=== PATIENT | female | born 1970 | race Caucasian/White ===

== ENCOUNTER → 2016-05-01 | Day surgery (SDC) | payer OTHER, MEDICARE ==
[~2016-05-01] VITALS: Ht 152.4 cm; Wt 63.5 kg
[~2016-05-01] MED LIST: ADVAIR 250-501 EACH INH; ALPRAZOLAM0.5 M4 PO; ATENOLOL50 M1 PO; FLEXERIL10 MG PO; FLUOXETINE HCL40 M1 PO; GABAPENTIN600 M1 PO; MOBIC15 MG PO; NASONEX17 GM; OMEPRAZOLE20 M2 PO; OMEPRAZOLE40 M1 PO; PERCOCET 5-3251 EACH PO; PROAIR HFA8.5 GM INH; PROZAC20 M2 PO; SYNTHROID25 MCG PO; TIZANIDINE HCL4 M2 PO
--- NOTE | 2016-05-01 11:03 | Operative Report ---
Operative/Inv Procedure Report Surgery Date: 05/01/16 Name of Procedure: Diagnostic laparoscopy peritoneal washings Pre-Operative Diagnosis: Pelvic pain Post-Operative Diagnosis: Same and adenomyosis of the uterus Estimated Blood Loss: less than 50ml Surgeon/Moving Picture Operator: HOME LOZANO,YE Boswell Anesthesia: general endotracheal tube, block Operative/Procedure Note Note: Procedure note patient was taken the operating room placed prone position after adequate anesthesia patient placed in dorsolithotomy position vagina prepped draped fashion bladder was catheterized examination anesthesia performed CO2 tenaculum placed on the Intralipid cervix gentle downward traction at this point on surgeon regowned and gloved at the level the umbilicus a stab incision was made to allow for the entry of Veress needle the abdomen was insufflated approximately 4 L of CO2 to liver edge dullness which point the Veress needle was removed a 10 mm trocar was inserted atraumatically at the umbilicus sheath remained in place through that sheath a laparoscope was placed under direct visualization a 5 mm trocar was placed 2 fingerbreadths of symptoms pubis in the midline through that a port was placed to allow fluid into the abdomen fluid was sent for peritoneal washings oral instruments removed from the abdomen as well as maximal CO2 the incision at the umbilicus oversewn using 0 skin was reapproximated 30 both incisions Marcaine was injected underneath both incisions sterile dressings were applied to both incisions patient tolerated this well advancements removed from the vagina the patient was returned spine position she was extubated awakened from anesthesia and transferred recovery room awake and alert with counts correct Findings: Uterus consistent with adenomyosis normal ovaries and tubes bilaterally otherwise normal anatomy
== END ==
LOC: STS 01:41
DX: N80.0 Endometriosis of uterus (principal); R10.2 Pelvic and perineal pain; I10 Essential (primary) hypertension; M79.7 Fibromyalgia; G62.9 Polyneuropathy, unspecified
CPT/HCPCS: 88305; J0131; J2250

== ENCOUNTER 2016-06-18 23:13 | Inpatient (IN) | payer OTHER, MEDICARE ==
[~2016-06-18] VITALS: Ht 152.4 cm; Wt 65.8 kg
[~2016-06-18 23:13] MED LIST changes: -PERCOCET 5-3251 EACH PO
[2016-06-19] VITALS (10 sets, daily range): BP systolic 120–160; BP diastolic 80–100
--- NOTE | 2016-06-19 09:57 | Operative Report ---
Operative/Inv Procedure Report Surgery Date: 06/19/16 Name of Procedure: Total abdominal hysterectomy bilateral salpingo-oophorectomy placement of stents removal of stents Pre-Operative Diagnosis: Pelvic pain Post-Operative Diagnosis: Same Estimated Blood Loss: 500 Surgeon/Chocolate Molder: HOME LOZANO,YE Boswell and Dr. Louis Leigh Anesthesia: general endotracheal tube, block Operative/Procedure Note Note: Regional patient was taken the operating room placed prone position after adequate anesthesia patient placed in dorsolithotomy position the vagina was prepped draped so fashion stents were placed by Dr. Mook Ibarra will dictate that part case patient was returned spine position through a Pfannenstiel skin incision skin was cut carried down to rectus fascia which was cut in curvilinear fashion direction peritoneal cavity was entered high into the abdomen at this point the eyes Martin O'Kelton was placed in usual fashion round ligament on the right was identified suture-ligated 0 the round ligament left was identified suture-ligated 0 I the bladder flap was developed sharply quickly cervical branches uterine artery clamped and cut to level of the external os the specimen was clamped with Arenas ducts and removed with Cely's the cuff was oversewn running locking suture of 0 was indicated interrupted [id number]'s at the uterosacrals for hemostasis at this point the right ovary was picked up clamped using Arenas ducts 2 oversewn. T the right ovary and tube were removed the left tube was picked up with Burson clamped with Arenas ducts 2 and the left ovary and tube were removed the pedicle was oversewn 4 using 0 Vicryl hemostasis was apparent the abdomen was irrigated close amounts once until clear the on Nancy was applied to the cervical cuff after hemostasis was apparent all lap pads rings were removed from the abdomen counts correct peritoneum was reapproximated 0 fascia was reapproximated in 2 continuous sutures of running lock subcutaneous tenderness tissues Bovie quite a skin was reprocessed made nichole at the end the case counts correct the urine was clear the stents removed bilaterally tip intact once the vagina had been irrigated and found to be hemostatic the patient was extubated and transferred recovery room awake and alert Findings: Atrophic uterus atrophic ovaries otherwise normal anatomy
--- NOTE | 2016-06-19 13:00 | NUR ---
PT ADMITTED FROM PACU S/P ROCK, PT DROWSY, AROUSABLE, C/O ABD PAIN 09/27, PT REMINDED TO USE DILAUDID FACE WORKER, CRISTINA CATH IN PLACE, IVF INFUSING.ABD DSG CDI, ABD BINDER IN PLACE.PT ORIENTED TO ROOM, CALL LIGHT AND PLAN OF CARE, PT VERBALIZES UNDERSTANDING.
[2016-06-19 19:49] LABS: ABSOLUTE BASOPHIL COUNT 0 /CUMM (0.0-0.2); ABSOLUTE EOSINOPHIL COUNT 0 /CUMM (0.0-0.7); ABSOLUTE GRANULOCYTE CT 9.5 /CUMM (1.4-6.5); ABSOLUTE LYMPH COUNT 0.3 /CUMM (1.2-3.4); ABSOLUTE MONOCYTE COUNT 0.1 /CUMM (0.10-0.60); BASOPHIL % 0 % (0.0-2.0); EOSINOPHIL % 0 % (0-5); HEMATOCRIT 33.1 % (37-47); MEAN CORPUSCULAR VOLUME 87.9 FL (81.0-99.0); MEAN PLATELET VOLUME 7.7 FL (7.4-10.4); PLATELET COUNT 315 /CUMM (130-400); RBC DISTRIBUTION WIDTH 13.8 % (11.5-14.5); RED BLOOD CELL CT 3.77 /CUMM (4.20-5.40)
[2016-06-20] VITALS (9 sets, daily range): BP systolic 98–144; BP diastolic 58–98
[2016-06-20] MEDS ORDERED: PERCOCET 5-3251 EACH PO (09:07)
--- NOTE | 2016-06-20 09:15 | PN- Post Delivery/GYN ---
Subjective Subjective: C/O PAIN +FLATUS Objective Last 24 Hrs of Vital Signs/I&O Vital Signs Date Time Temp Pulse Resp B/P Pulse O2 O2 Flow FiO2 Ox Delivery Rate 03/ 0838 132/76 03/03 0736 98.8 61 18 132/76 98 Nasal Cannula 03/03 0600 98.1 61 18 138/76 03/03 0400 98.4 69 18 138/88 03/03 0400 98.4 69 18 138/88 97 03/03 0200 98.4 71 18 144/98 03/03 0200 98.4 71 18 144/78 98 Nasal Cannula 03/03 0000 98.1 60 18 130/80 03/03 0000 98 Nasal 1.0L Cannula 03/ 2310 98.1 60 18 130/80 99 Nasal Cannula 03/ 2210 96.8 62 18 140/80 03/02 2135 96.8 62 18 140/80 98 Nasal Cannula 03/ 1945 98.4 55 18 146/86 03/02 1904 98.4 55 18 146/86 99 Nasal 3.0L Cannula 03/ 1745 97.8 66 18 160/100 03/02 1719 97.8 66 18 160/100 99 Nasal 3.0L Cannula 03/ 1600 99 Nasal 3.0L Cannula 03/ 1546 97.8 58 18 140/90 03/02 1506 97.8 58 18 140/90 99 03/02 1318 98 Nasal 3.0L Cannula 03/ 1300 97.6 56 18 120/80 03/02 1300 97.6 56 18 120/80 98 Nasal 3.0L Cannula Intake & Output /03 1600 03/03 0800 03/03 0000 Intake Total 1100 1060 Output Total 400 Balance 1100 660 Intake, IV 1000 1000 Intake, Oral 100 60 Number 0 Bowel Movements Output, Urine 400 Physical Exam: PE PALE WF ABD SOFT DISTENTION EXT -EDEMA-HOMANS Assessment/Plan Assessment/Plan ASSESS S/P ROCK BSO FOR PAIN PLAN ADVANCE DIET ANVANCE AMBULATION
[2016-06-21 00:18] VITALS: BP 98/60
[2016-06-21 07:07] VITALS: BP 98/62
[2016-06-21 09:02] VITALS: BP 102/70
[2016-06-21] MEDS ORDERED: PERCOCET 5-3251 EACH PO (10:56)
--- NOTE | 2016-06-24 12:47 | Operative Report ---
Operative/Inv Procedure Report Surgery Date: 06/19/16 Name of Procedure: cystoscopy: bilateral stent insertion Pre-Operative Diagnosis: fibroids Post-Operative Diagnosis: same Estimated Blood Loss: scant Surgeon/Boot And Saddle Repair Person: md simon. meka-urology Anesthesia: general endotracheal tube Drains: 18 fr lyles Specimens: ucx Complications: none Operative/Procedure Note Note: The patient was taken to the operating room and placed on the OR table in supine position. Timeout was performed, with the patient awake, to confirm identify, planned procedures, anesthesia, antibiotics and other pertinent damien-operative information. After adequate anesthesia, and IV antibiotics, the patient was placed in lithotomy Yellow-fin stirrups. She was then draped and prepped in the usual surgical fashion, including a vaginal prep. A 22 Grenadian cystoscope sheath with a 30 angle lens was inserted into the bladder without significant difficulty. The bladder was thoroughly and systematically examined, and was noted to be free of tumor, free of stone, free of endometriosis. Both ureteral orifices were in their orthotopic positions with clear reflux bilaterally. Under direct visualization the left orifice was intubated with a 5 Grenadian whistle-tip catheter, which was advanced easily into the left kidney pelvis. The right ureteral orifice was intubated with a second 5 Grenadian ureteral whistle tip catheter, and advanced into the right renal pelvis without difficulty. For identification purposes the blue marked stent went into the left kidney and the right ureteral stent was marked red. Urine culture was obtained and sent to pathology. The cystoscope was then removed leaving both stents in proper place. An 18 Grenadian Lyles catheter was inserted draining clear fluid and 10 mL of sterile water was then placed in the balloon. The ends ureteral stents, which protruded externally, were taped to the Lyles catheter in order to secure their position. The individual ureteral stents were then connected to their individual drainage devices. The patient tolerated the procedure well. All sponge needle and instrument count were correct at the end of this procedure. The patient was then placed in supine position with Venodyne's in place. At this point, Dr. Munoz was able to proceed with her patient's surgery. Discharge Disposition: proceed with dr. munoz CC: SIMON LOZANO,MEKA
--- NOTE | 2016-06-26 12:21 | Surgical Discharge Summary ---
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 Home What is Your Primary Language? Lao Review of Systems: -13 point review of systems as stated in the [facility] Hospital Course Course Attending Physician: YE BHAT MD Primary Care Physician: ABIOLA PULIDO MD Hospital Course: She was admitted for a total abdominal hysterectomy and she did well she underwent a total abdominal hysterectomy first postoperative day she tolerated clear liquid diet she tolerated oral pain medication urinating freely without these were Maxwell she was out of bed and second postoperative day patient was discharged home the fine physical exam submitted white female HEENT anicteric lungs clear heart S1-S2 abdomen soft incision clean dry and intact with nichole in place extremities negative edema negative Homans Allergies: Coded Allergies: latex (RASH 05/01/16) prochlorperazine (From COMPAZINE) (ANAPHYLAXIS 05/01/16) Disposition Summary Disposition Principal Diagnosis: Status post total abdominal hysterectomy Additional Diagnosis: Anemia Discharge Disposition: home or self care Discharge Instructions General Discharge Information Code Status: Full Code Patient's Diet: REGULAR Patient's Activity: Pelvic rest no heavy lifting greater than 15 pounds nothing in the vagina for 6 weeks no driving for 2 weeks Follow-Up Instructions/Appts: 1 week in my office to remove nichole Medications at Discharge Discharge Medications: Continue taking these medications: Levothyroxine Sodium (Synthroid) 25 MCG TABLET 1 Tablet ORAL DAILY Comments: Last Taken:NOT GIVEN IN HOSPITAL Time: Atenolol (Atenolol) 50 MG TABLET 1 Tablet ORAL DAILY Comments: Last Taken:06/21/16 Time:0900 Gabapentin (Gabapentin) 600 MG TABLET 1 Tablet ORAL THREE TIMES DAILY Comments: Last Taken:06/21/16 Time:0600 Fluticasone/Salmeterol (Advair 250-50 Diskus) (Unknown Strength) BLST.W.DEV Unknown Dose Inhale through mouth TWICE DAILY Comments: Last Taken:NOT GIVEN IN HOSPITAL Time: Albuterol Sulfate (Proair Hfa) 90 MCG HFA.AER.AD 1-2 Puff Inhale through mouth As Directed as needed for RESPIRATORY Comments: Last Taken:NOT GIVEN IN HOSPITAL Time: Fluoxetine HCl (Fluoxetine HCl) 40 MG CAPSULE 1 Tablet ORAL DAILY Comments: Last Taken:06/21/16 Time:0900 Omeprazole (Omeprazole) 20 MG CAPSULE.DR 1 Tablet ORAL DAILY Comments: Last Taken:NOT GIVEN IN HOSPITAL Time: Tizanidine HCl (Tizanidine HCl) 4 MG CAPSULE 1 Tablet ORAL NIGHTLY Instructions: TAKES 2-4 MG Comments: Last Taken:NOT GIVEN IN HOSPITAL Time: Alprazolam (Alprazolam) 0.5 MG TABLET 1 Tablet ORAL THREE TIMES DAILY Comments: Last Taken:NOT GIVEN IN HOSPITAL Time: Mometasone Furoate (Nasonex) 50 MCG SPRAY.PUMP 1 [place] DAILY Comments: Last Taken:NOT GIVEN IN HOSPITAL Time: Oxycodone HCl/Acetaminophen (Percocet 5-325 MG Tablet) 5 MG-325 MG TABLET 1 Tablet ORAL EVERY 3 HOURS NEEDED as needed for PAIN SCALE 4-6 (MODERATE ) Qty = 30 Comments: Last Taken:06/21/16 Time:0930 This prescription has been renewed Start taking the following new medications: Oxycodone HCl/Acetaminophen (Percocet 5-325 MG Tablet) 5 MG-325 MG TABLET 1 Tablet ORAL EVERY 4 HOURS NEEDED as needed for PAIN Qty = 30 No Refills
[2016-06-28 14:53] LABS: WHITE BLOOD CELL COUNT 9.9 /CUMM (4.8-10.8)
== END 2016-06-21 12:35 | DRG 743 ==
LOC: ENRESERVTM → ENRESERVDT → SDA 23:13 → 2NA 06-19 06:27 → ENPENDDIS 06-19 06:27 → SDA 06-19 07:00 → 2NA 06-19 12:40
PROVIDERS: ADMIT Specialist
PROC: 0UT90ZZ Resection of Uterus, Open Approach (ICD-10-PCS; principal; 2016-06-19)
PROC: 0UTC0ZZ Resection of Cervix, Open Approach (ICD-10-PCS; principal; 2016-06-19)
PROC: 0UT70ZZ Resection of Bilateral Fallopian Tubes, Open Approach (ICD-10-PCS; principal; 2016-06-19)
PROC: 0UT20ZZ Resection of Bilateral Ovaries, Open Approach (ICD-10-PCS; principal; 2016-06-19)
PROC: 0T788DZ Dilation of Bilateral Ureters with Intraluminal Device, Via Natural or Artificial Opening Endoscopic (ICD-10-PCS; 2016-06-19)
DX: D25.9 Leiomyoma of uterus, unspecified (principal); I10 Essential (primary) hypertension; J45.909 Unspecified asthma, uncomplicated; K21.9 Gastro-esophageal reflux disease without esophagitis
CPT/HCPCS: 2NAP; SDA; 36415; 81001; 81025; 87086; 88307; J0131; J0694; J1170; J1885; J2405; J3490

== ENCOUNTER 2016-08-08 23:39 | Inpatient (IN) | payer OTHER, MEDICARE ==
[~2016-08-08] VITALS: Ht 152.4 cm; Wt 62.6 kg
[~2016-08-08 23:39] MED LIST changes: +PERCOCET 5-3251 EACH PO
--- NOTE | 2016-08-08 23:41 | ED GENERAL ADULT ---
History of Present Illness General Chief Complaint: Abdominal Pain/Flank Pain Stated Complaint: AND PAIN, N/V/D Source: patient Exam Limitations: poor historian Vital Signs & Intake/Output Vital Signs & Intake/Output Vital Signs Date Time Temp Pulse Resp B/P B/P Pulse O2 O2 Flow FiO2 Mean Ox Delivery Rate 08/09 0523 Room Air 08/08 2358 95.4 68 16 160/70 99 Room Air ED Intake and Output 08/09 0000 08/08 1200 Intake Total Output Total Balance Patient 145 lb Weight Weight Estimated Measurement Method Allergies Coded Allergies: latex (RASH 05/01/16) prochlorperazine (From COMPAZINE) (ANAPHYLAXIS 05/01/16) Reconcile Medications Albuterol Sulfate (Proair Hfa) 90 MCG HFA.AER.AD 1-2 PUF INH AD PRN RESPIRATORY (Reported) Alprazolam 0.5 MG TABLET 1 TAB PO TID ANXIETY (Reported) Atenolol 50 MG TABLET 1 TAB PO DAILY BP (Reported) Fluoxetine HCl 40 MG CAPSULE 1 TAB PO DAILY DEPRESSION (Reported) Fluticasone/Salmeterol (Advair 250-50 Diskus) (Unknown Strength) BLST.W.DEV ( Unknown Dose) INH BID RESPIRATORY (Reported) Gabapentin 600 MG TABLET 1 TAB PO TID NERVE PAIN (Reported) Levothyroxine Sodium (Synthroid) 25 MCG TABLET 1 TAB PO DAILY THYROID ( Reported) Mometasone Furoate (Nasonex) 50 MCG SPRAY.PUMP 1 SPRAY DAILY ALLERGIES ( Reported) Omeprazole 20 MG CAPSULE.DR 1 TAB PO DAILY GERD (Reported) Oxycodone HCl/Acetaminophen (Percocet 5-325 MG Tablet) 5 MG-325 MG TABLET 1 TAB PO Q3P PRN PAIN SCALE 4-6 (MODERATE) Oxycodone HCl/Acetaminophen (Percocet 5-325 MG Tablet) 5 MG-325 MG TABLET 1 TAB PO Q4P PRN PAIN Tizanidine HCl 4 MG CAPSULE 1 TAB PO NIGHTLY SPASM (Reported) TAKES 2-4 MG Triage Nurses Notes Reviewed? yes Onset: Abrupt Duration: day(s): Timing: recent history HPI: 08/08/16 11:59 PM This is a 46-year-old female presents to the emergency department for left lower quadrant abdominal pain and vomiting. The patient states she's been vomiting over the past 12 hours. She says she is exhausted. The onset of the symptoms were abrupt, the duration has been 12 hours, the severity is significant as her symptoms required her to come to the emergency department for care. On physical exam her abdomen is soft, left lower quadrant tender. She is actively vomiting. She is status post hysterectomy by Dr. Davidson one month ago Past History Medical History Any Pertinent Medical History? 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 No Review of Systems Review of Systems Constitutional: Denies: fever. EENTM: Reports: no symptoms. Respiratory: Reports: short of breath. Cardiovascular: Reports: no symptoms. GI: Reports: abdominal pain, nausea, vomiting. Genitourinary: Reports: no symptoms. Musculoskeletal: Reports: no symptoms. Skin: Reports: no symptoms. Neurological/Psychological: Reports: no symptoms. Hematologic/Endocrine: Reports: no symptoms. Immunologic/Allergic: Reports: no symptoms. Physical Exam Physical Exam General Appearance: alert, awake, anxious, severe distress Head: atraumatic, normal appearance Eyes: Bilateral: normal appearance, PERRL, EOMI. Ears, Nose, Throat: DRY MUCOUS MEMBRANES Neck: normal inspection, supple Respiratory: normal breath sounds, chest non-tender, no respiratory distress Cardiovascular: tachycardia Peripheral Pulses: 4+ radial (R), 4+ radial (L) Gastrointestinal: soft, tenderness Back: decreased range of motion Extremities: normal inspection, normal range of motion Neurologic/Psych: no motor/sensory deficits, awake, alert, oriented x 3 Skin: intact, normal color, warm/dry Core Measures ACS in differential dx? No CVA/TIA Diagnosis: No Severe Sepsis Present: No Septic Shock Present: No Progress Differential Diagnoses I considered the following diagnoses in my evaluation of the patient: [ Gastroenteritis, appendicitis, bowel obstruction] Plan of Care: Orders Procedure Date/time Status CBC WITHOUT DIFFERENTIAL 08/10 599 Active BASIC ELECTROLYTES PLUS BUN&CR 08/10 599 Active Nothing by Mouth 08/09 B Active EKG 08/10 527 Active XRY-PORTABLE CHEST XRAY 08/09 050 Active TRC EVALUATION (GEN) 08/09 449 Active INCENTIVE SPIROMETRY TRX (GEN) 08/09 449 Active Patient Data 08/09 444 Active Code Status 08/09 444 Active Admit to inpatient 08/09 433 Active Add-on Test (ER Only) 08/09 0021 Active ETHANOL 08/09 0014 Complete D-DIMER 08/09 0008 Complete URINE 08/09 0001 Complete URINE DRUG SCREEN FOR ER ONLY 08/09 0001 Complete URINALYSIS 08/09 0001 Complete LIPASE 08/09 0001 Complete COMPREHENSIVE METABOLIC PANEL 08/09 0001 Complete CBC WITHOUT DIFFERENTIAL 08/09 0001 Complete AMYLASE 08/09 0001 Complete VTE Mechanical Prophylaxis 08/09 UNK Active Vital Signs 08/09 UNK Active Intake & Output 08/09 UNK Active Current Medications Sig/Latonya Start time Last Medication Dose Stop Time Status Admin Atenolol 50 MG DAILY 08/09 1000 UNVr (Tenormin) Budesonide/ 2 PUF BID 08/09 1000 UNVr Formoterol Fumarate (Symbicort) Fluoxetine HCl 40 MG DAILY 08/09 1000 AC (Prozac) Pantoprazole Sodium 40 MG DAILY 08/09 1000 AC (Protonix) Levothyroxine Sodium 0.025 MG DAILY AC 08/09 0700 AC (Synthroid) Gabapentin 600 MG Q8 08/09 0600 AC (Neurontin) Heparin Sodium 5,000 UNIT Q8 08/09 0600 UNVr (Porcine) Albuterol Sulfate 2 PUF Q4-6 PRN PRN 08/09 0500 UNVr (Ventolin) Alprazolam 0.5 MG TID PRN 08/09 0500 UNVr (Xanax) 08/16 0459 Morphine Sulfate 2 MG Q4-6 PRN PRN 08/09 0500 UNVr (Morphine) Morphine Sulfate 4 MG Q4-6 PRN PRN 08/09 0500 UNVr (Morphine) Sodium Chloride 2 SPRAY Q4-6 PRN PRN 08/09 0500 AC (Nasal) Tizanidine HCl 2 MG AT BEDTIME NEED.. 08/09 0500 AC (Zanaflex) Dextrose/Sodium 1,000 ML Q8H 08/09 0445 AC 08/09 Chloride 0519 (D5-Normal Saline) Ondansetron HCl 4 MG Q6P PRN 08/09 0445 AC (Zofran) Laboratory Tests 08/09/16 0140: D-Dimer 329 H 08/09/16 0014: Anion Gap 10, Estimated GFR > 60, BUN/Creatinine Ratio 30.0 H, Glucose 119 H, Calcium 9.5, Total Bilirubin 0.4, AST 28, ALT 31, Alkaline Phosphatase 52, Total Protein 7.0, Albumin 4.4, Globulin 2.6, Albumin/Globulin Ratio 1.7, Amylase 98, Lipase 191, CBC w Diff MAN DIFF ORDERED, RBC 4.51, MCV 86.5, MCH 29.2, RDW 14.4, MPV 8.3, Gran % 87.7 H, Lymphocytes % 8.6 L, Monocytes % 2.2, Eosinophils % 1.3, Basophils % 0.2, Absolute Granulocytes 11.1 H, Segmented Neutrophils 76 H , Absolute Lymphocytes 1.1 L, Lymphocytes 13 L, Monocytes 10 H, Absolute Monocytes 0.3, Eosinophils 1, Absolute Eosinophils 0.2, Absolute Basophils 0, Platelet Estimate ADEQUATE, Polychromasia 1+, PUBS MCHC 33.7, Serum Alcohol < 10.0, Urinalysis HEAVY H, Urine Color STRAW, Urine Clarity CLEAR, Urine pH 7.0, Ur Specific [place] 1.020, Urine Protein NEG, Urine Ketones NEG, Urine Nitrite NEG, Urine Bilirubin NEG, Urine Urobilinogen 0.2, Ur Leukocyte Esterase NEG, Ur Microscopic SEDIMENT EXAMINED, Urine RBC 1-3, Urine WBC 1-3 H, Ur Epithelial Cells FEW, Urine Mucus MOD H, Urine Hemoglobin TRACE-INTACT, Urine Glucose NEG, Urine Test NEGATIVE 08/09/16 0006: Serum Alcohol Cancelled 08/09/16 0001: Urine Opiates Screen < 100.00, Methadone Screen < 40, Barbiturate Screen < 60, Ur Phencyclidine Scrn < 6.00, Amphetamines Screen < 100, U Benzodiazepines Scrn < 85, Urine Cocaine Screen < 50, Urine Cannabis Screen > 80.00 H Initial ED EKG: no ST T wave changes, SINUS BRADYCARDIA Prior EKG: unchanged Departure Departure Disposition: STILL A PATIENT Condition: Stable Clinical Impression Primary Impression: Bowel obstruction Referrals: ASHOK LOZANO,ABIOLA Gregory (PCP/Family) Departure Forms: Customer Survey General Discharge Information Comments CT IMPRESSION: The stomach and small bowel are distended. There is fecal-like material within the small bowel. A point of transition to decompressed bowel is visualized within the pelvis which raises the suspicion of obstruction or partial obstruction related to fibrous adhesions presumably related to prior surgery. The distal small bowel and colon are collapsed. Of note there is unusual small bowel anatomy. Specifically the ligament of Treitz does not have a normal position within the left upper quadrant. After the duodenum crosses the midline it then sweeps acutely to the right, anterior to the superior mesenteric vein. DICTATED BY: STEVIE CHANDRA MD DATE/TIME DICTATED:08/09/16335 PASSENGER CAR UPHOLSTERER APPRENTICE:BRAULIO DATE/TIME TRANSCRIBED:08/09/16335 CONFIDENTIAL, DO NOT COPY WITHOUT APPROPRIATE AUTHORIZATION. <Electronically signed in Other Vendor System> SIGNED BY: STEVIE CHANDRA MD 08/09 0359 The patient was treated with multiple liters of IV fluids, multiple doses of IV antiemetics. IV opiates for pain control. She was admitted to the surgical service for further care. An NG tube was placed by nd. A chest x-ray was ordered. There was gastric secretions suctioned from the NG tube after insertion Admission Note Spoke With: IZABELA LOZANO,MARYSOL Nichols Documentation of Exam: Documentation of any treatments & extenuating circumstances including Concerns Regarding Discharge (functional status, medication knowledge or non-compliance, living conditions, etc.) that warrant an admission rather than observation: [ Patient needs admission for IV fluids, NG tube suction, surgical evaluation] Critical Care Note Critical Care Note Critical Care Time: 30-74 min
--- NOTE | 2016-08-08 23:48 | NUR ---
PT BIBA C/O 01/27 PAIN TO [facility], N/V/D X3 HOURS. PER EMS PT HAS A TOTAL HYSTERECTOMY X1 MONTH AGO. PT STATES SHE WAS LAYING DOWN WHEN PAIN AND VOMITING STARTED. PT ARRIVES YELLING IN PAIN, BUT WHEN THIS RN AND MST RAMESH ATTEMPTED TO GET STORY FROM PT, PT FELL ASLEEP AND WOULD ONLY RESPOND TO NOXIOUS STIMULI. PT ABLE TO LEFT HERSELF ON BEDPAN FOR URINE SAMPLE.
--- NOTE | 2016-08-08 23:49 | NUR ---
PT STATES SHE BELIEVES SHE MAY HAVE STOMACH BUG, NEICES AND NEPHEWS HAVE HAD STOMACH BUG AND SIMILAR SYMPTOMS
--- NOTE | 2016-08-08 23:57 | NUR ---
PT LETHARGIC AND ASLEEP WHILE ON BEDPAN, PT THEN ASKED FOR BASIN AND VOMITED SMALL AMOUNT OF FOOD LIKE SUBSTANCE.
--- NOTE | 2016-08-09 00:35 | NUR ---
PT MEDICATED WITH 4MG ZOFRAN AND NS INFUSING PER EMAR
[2016-08-09 00:37] LABS: ABSOLUTE BASOPHIL COUNT 0 /CUMM (0.0-0.2); ABSOLUTE EOSINOPHIL COUNT 0.2 /CUMM (0.0-0.7); ABSOLUTE GRANULOCYTE CT 11.1 /CUMM (1.4-6.5); ABSOLUTE LYMPH COUNT 1.1 /CUMM (1.2-3.4); ABSOLUTE MONOCYTE COUNT 0.3 /CUMM (0.10-0.60); BASOPHIL % 0.2 % (0.0-2.0); EOSINOPHIL % 1.3 % (0-5); GRANULOCYTE % 87.7 % (42.2-75.2); HEMATOCRIT 39.1 % (37-47); MEAN CORPUSCULAR HGB 29.2 PG (27.0-31.0); MEAN CORPUSCULAR HGB CONC 33.7 G/DL (33.0-37.0); MEAN CORPUSCULAR VOLUME 86.5 FL (81.0-99.0); MEAN PLATELET VOLUME 8.3 FL (7.4-10.4); PLATELET COUNT 282 /CUMM (130-400); RBC DISTRIBUTION WIDTH 14.4 % (11.5-14.5); RED BLOOD CELL CT 4.51 /CUMM (4.20-5.40); WHITE BLOOD CELL COUNT 12.6 /CUMM (4.8-10.8)
--- NOTE | 2016-08-09 02:00 | NUR ---
PT MEDICATED WITH 12.5MG PHENERGEN PER EMAR
--- NOTE | 2016-08-09 02:52 | NUR ---
PT MEDICATED WITH 4MG ZOFRAN PER EMAR
--- NOTE | 2016-08-09 02:57 | NUR ---
PT TO CAT SCAN VIA STRETCHER
--- NOTE | 2016-08-09 03:08 | NUR ---
PT FROM CAT SCAN VIA STRETCHER
--- NOTE | 2016-08-09 03:59 | CT SCAN REPORT ---
EXAMINATION: CT ABDOMEN AND PELVIS WITH CONTRAST CLINICAL INFORMATION: Left lower quadrant abdominal pain and vomiting. COMPARISON: No relevant prior imaging available. TECHNIQUE: Multidetector volumetric imaging was performed of the abdomen and pelvis before and after the IV administration of 95 mL of Optiray 320 intravenous contrast. Sagittal and coronal reformatted images were obtained on the technologist's workstation. DLP: 356 mGy-cm FINDINGS: LUNG BASES: Lung bases are clear. There is no pleural or pericardial effusion. LIVER, GALLBLADDER, AND BILIARY TREE: Liver attenuation is homogeneous with the exception of a small benign-appearing cyst within the left lobe of the liver. There is no worrisome hepatic parenchymal mass. The gallbladder is normal and there is no abnormal intrahepatic or extrahepatic biliary ductal dilatation. PANCREAS: Unremarkable. SPLEEN: Unremarkable. ADRENAL GLANDS: Unremarkable. KIDNEYS AND URETERS: There is a rounded nonspecific low-density lesion near the upper pole of left kidney. Kidneys are otherwise unremarkable. Specifically they demonstrate symmetric nephrographic enhancement. There is no hydroureteronephrosis. No worrisome mass or calcifications visualized along the expected course of the right or left ureter. BLADDER: Unremarkable. GASTROINTESTINAL TRACT: There is unusual small bowel anatomy. Specifically the ligament of Treitz does not have a normal position within the left upper quadrant. After the duodenum crosses the midline and then sweeps acutely to the right anterior to the superior mesenteric vein. The stomach and proximal small bowel are distended. There is fecal-like material within the small bowel. There is a point of transition to decompressed bowel within the pelvis for instance best illustrated on axial image 75 of 91 series 2. There is no evidence of a soft tissue mass in this location. It is likely related to the presence of fibrous adhesions. The colon is collapsed. ABDOMINAL WALL: There are chronic changes of a incision. Abdominal wall is otherwise intact. LYMPH NODES: There are no pathologically enlarged mesenteric or retroperitoneal lymph nodes. VASCULAR: The abdominal aorta is unremarkable. Inferior vena cava is normal. PELVIC VISCERA: The uterus is surgically absent. No worrisome adnexal mass. OSSEOUS STRUCTURES: There chronic changes of a spinal fusion with a hardware construct comprised of transpedicular screws that extend from L3 to S1 transfixed by vertical fusion rods. Otherwise there is no acute osseous finding. No worrisome lytic or blastic osseous lesions. IMPRESSION: The stomach and small bowel are distended. There is fecal-like material within the small bowel. A point of transition to decompressed bowel is visualized within the pelvis which raises the suspicion of obstruction or partial obstruction related to fibrous adhesions presumably related to prior surgery. The distal small bowel and colon are collapsed. Of note there is unusual small bowel anatomy. Specifically the ligament of Treitz does not have a normal position within the left upper quadrant. After the duodenum crosses the midline it then sweeps acutely to the right, anterior to the superior mesenteric vein.
--- NOTE | 2016-08-09 04:53 | Admission Core Measures ---
Admission Lab Results I reviewed the following labs: Laboratory Tests 08/09 08/09 08/09 0140 0014 0006 Chemistry Sodium (137 - 145 mmol/L) 139 Potassium (3.5 - 5.1 mmol/L) 4.8 Chloride (98 - 107 mmol/L) 106 Carbon Dioxide (22 - 30 mmol/L) 24 Anion Gap (5 - 16) 10 BUN (7 - 17 mg/dL) 15 Creatinine (0.5 - 1.0 mg/dL) 0.5 Estimated GFR (>60 ml/min) > 60 BUN/Creatinine Ratio (7 - 25 %) 30.0 H Glucose (65 - 99 mg/dL) 119 H Calcium (8.4 - 10.2 mg/dL) 9.5 Total Bilirubin (0.2 - 1.3 mg/dL) 0.4 AST (14 - 36 U/L) 28 ALT (9 - 52 U/L) 31 Alkaline Phosphatase (<127 U/L) 52 Total Protein (6.3 - 8.2 g/dL) 7.0 Albumin (3.5 - 5.0 g/dL) 4.4 Globulin (1.9 - 4.2 gm/dL) 2.6 Albumin/Globulin Ratio (1.1 - 2.2 %) 1.7 Amylase (30 - 110 U/L) 98 Lipase (23 - 300 U/L) 191 Coagulation D-Dimer (70 - 232 ng/ml) 329 H Hematology CBC w Diff MAN DIFF ORDERED WBC (4.8 - 10.8 /CUMM) 12.6 H RBC (4.20 - 5.40 /CUMM) 4.51 Hgb (12.0 - 16.0 G/DL) 13.2 Hct (37 - 47 %) 39.1 MCV (81.0 - 99.0 FL) 86.5 MCH (27.0 - 31.0 PG) 29.2 RDW (11.5 - 14.5 %) 14.4 Plt Count (130 - 400 /CUMM) 282 MPV (7.4 - 10.4 FL) 8.3 Gran % (42.2 - 75.2 %) 87.7 H Lymphocytes % (20.5 - 51.1 %) 8.6 L Monocytes % (1.7 - 9.3 %) 2.2 Eosinophils % (0 - 5 %) 1.3 Basophils % (0.0 - 2.0 %) 0.2 Absolute Granulocytes (1.4 - 6.5 /CUMM) 11.1 H Segmented Neutrophils (42.2 - 75.2 %) 76 H Absolute Lymphocytes (1.2 - 3.4 /CUMM) 1.1 L Lymphocytes (20.5 - 51.1 %) 13 L Monocytes (1.7 - 9.3 %) 10 H Absolute Monocytes (0.10 - 0.60 /CUMM) 0.3 Eosinophils (0 - 5.0 %) 1 Absolute Eosinophils (0.0 - 0.7 /CUMM) 0.2 Absolute Basophils (0.0 - 0.2 /CUMM) 0 Platelet Estimate (ADEQUATE) ADEQUATE Polychromasia 1+ PUBS MCHC (33.0 - 37.0 G/DL) 33.7 Toxicology Serum Alcohol (<10 MG/DL) < 10.0 Cancelled Urines Urinalysis HEAVY H Urine Color (YEL,AMB,STR) STRAW Urine Clarity (CLEAR) CLEAR Urine pH (5.0 - 8.0) 7.0 Ur Specific [place] (1.001 - 1.035) 1.020 Urine Protein (NEG,<30 MG/DL) NEG Urine Ketones (NEG) NEG Urine Nitrite (NEG) NEG Urine Bilirubin (NEG) NEG Urine Urobilinogen (0.1 - 1.0 EU/dl) 0.2 Ur Leukocyte Esterase (NEG) NEG Ur Microscopic SEDIMENT EXAMINED Urine RBC (0 - 5 /HPF) 1-3 Urine WBC (0 - 2 /HPF) 1-3 H Ur Epithelial Cells (NONE,FEW) FEW Urine Mucus (FEW,NONE) MOD H Urine Hemoglobin (NEG) TRACE-INTACT Urine Glucose (N MG/DL) NEG Urine Test NEGATIVE 08/09 0001 Toxicology Urine Opiates Screen (>2000 NG/ML) < 100.00 Methadone Screen (>300 NG/ML) < 40 Barbiturate Screen (>200 NG/ML) < 60 Ur Phencyclidine Scrn (>25 NG/ML) < 6.00 Amphetamines Screen (>1000 NG/ML) < 100 U Benzodiazepines Scrn (>200 NG/ML) < 85 Urine Cocaine Screen (>300 NG/ML) < 50 Urine Cannabis Screen (>50 NG/ML) > 80.00 H Admission Meds I reviewed the following Meds: Current Medications Sig/Latonya Start time Last Medication Dose Stop Time Status Admin Albuterol Sulfate 2 PUF Q4-6 PRN PRN 08/09 0500 UNVr (Ventolin) Alprazolam 0.5 MG TID PRN 08/09 0500 UNVr (Xanax) 08/16 0459 Atenolol 50 MG DAILY 08/09 1000 UNVr (Tenormin) Budesonide/ 2 PUF BID 08/09 1000 UNVr Formoterol Fumarate (Symbicort) Dextrose/Sodium 1,000 ML Q8H 08/09 0445 UNVr Chloride (D5-Normal Saline) Fluoxetine HCl 40 MG DAILY 08/09 1000 UNVr (Prozac) Gabapentin 600 MG Q8 08/09 0600 UNVr (Neurontin) Heparin Sodium 5,000 UNIT Q8 08/09 0600 UNVr (Porcine) Levothyroxine Sodium 0.025 MG DAILY AC 08/09 0700 UNVr (Synthroid) Morphine Sulfate 2 MG Q4-6 PRN PRN 08/09 0500 UNVr (Morphine) Morphine Sulfate 4 MG Q4-6 PRN PRN 08/09 0500 UNVr (Morphine) Ondansetron HCl 4 MG Q6P PRN 08/09 0445 UNVr (Zofran) Pantoprazole Sodium 40 MG DAILY 08/09 1000 UNVr (Protonix) Sodium Chloride 2 SPRAY Q4-6 PRN PRN 08/09 0500 UNVr (Nasal) Tizanidine HCl 2 MG AT BEDTIME NEED.. 08/09 0500 UNVr (Zanaflex) Acute Coronary Syndrome Inclusion Criteria ACS Diagnosis No Inpatient Core Measures LDL Reminder: If No, please order W/I first 24hr of stay Congestive Heart Failure Inclusion Criteria CHF Diagnosis No Cerebrovascular accident Inclusion Criteria CVA/TIA Diagnosis No Inpatient Core Measures Bedside Swallow Eval Reminder: If BSE failed, place ST order Antithrombotic Reminder: Order Antithrombotic Medication by end of day 2 Antithrombotic Reminder: Document Reason Antithrombotic Not ordered by end of day 2 AFIB/Flutter Reminder: If Present, add to problem list AFIB/Flutter Reminder: Order Anticoag Medication for pts with AFIB/Flutter Atherosclerosis Reminder: If Present, add to problem list LDL Reminder: If No, please order W/I first 24hr of stay PT Order Reminder: If No, please order Venous thromboembolism Inpatient Core Measures VTE Risk Factors: Age > 40 No Mech VTE prophylaxis d/t No contraindications No VTE Pharm Prophylaxis d/t No contraindications Inclusion Criteria - Per Current guidelines, there needs to be overlap - treatment for the first 5 days of Warfarin therapy. - Parenteral Anticoagulation (IV or SC) needs to be - given along with Warfarin therapy. VTE Diagnosis No VTE Type NONE VTE Confirmed by (Test) NONE Problem List As ranked by this Provider includes Assessment & Plan 1. Bowel obstruction HOME MEDS Home Med List Albuterol Sulfate (Proair Hfa) 90 MCG HFA.AER.AD 1-2 PUF INH AD PRN RESPIRATORY (Reported) Alprazolam 0.5 MG TABLET 1 TAB PO TID ANXIETY (Reported) Atenolol 50 MG TABLET 1 TAB PO DAILY BP (Reported) Fluoxetine HCl 40 MG CAPSULE 1 TAB PO DAILY DEPRESSION (Reported) Fluticasone/Salmeterol (Advair 250-50 Diskus) (Unknown Strength) BLST.W.DEV ( Unknown Dose) INH BID RESPIRATORY (Reported) Gabapentin 600 MG TABLET 1 TAB PO TID NERVE PAIN (Reported) Levothyroxine Sodium (Synthroid) 25 MCG TABLET 1 TAB PO DAILY THYROID ( Reported) Mometasone Furoate (Nasonex) 50 MCG SPRAY.PUMP 1 SPRAY DAILY ALLERGIES ( Reported) Omeprazole 20 MG CAPSULE.DR 1 TAB PO DAILY GERD (Reported) Oxycodone HCl/Acetaminophen (Percocet 5-325 MG Tablet) 5 MG-325 MG TABLET 1 TAB PO Q3P PRN PAIN SCALE 4-6 (MODERATE) Oxycodone HCl/Acetaminophen (Percocet 5-325 MG Tablet) 5 MG-325 MG TABLET 1 TAB PO Q4P PRN PAIN Tizanidine HCl 4 MG CAPSULE 1 TAB PO NIGHTLY SPASM (Reported)
--- NOTE | 2016-08-09 05:02 | NUR ---
NG TUBE PLACEMENT BY
--- NOTE | 2016-08-09 05:18 | NUR ---
PY ADMIT RM 235
--- NOTE | 2016-08-09 05:19 | NUR ---
SURGICAL PA AT BEDSIDE FOR PT EVALUATION
--- NOTE | 2016-08-09 05:23 | NUR ---
XRAY AT BEDSIDE FOR IMAGING
--- NOTE | 2016-08-09 05:25 | History & Physical Pre-Op ---
ABIOLA MAYEN 08/09/16 0523: General Information and HPI MD Statement: I have seen and personally examined BOBBI COTTER and documented this H&P. The patient is a 46 year old F who presented with a patient stated chief complaint of [ABDOMINAL PAIN]. Source of Information: patient, old records History of Present Illness: This 46 year old female with hx fibromyalgia and longstanding "GI issues" presents one month s/p abdominal hysterectomy with abdominal pain. She reports an underyling chronic nature of her GI issues, with only IBS apparently as a diagnosis, for which she is followed by . She admits to a 20-30 lb involuntary weight loss in the last few months. In the last 24 to 48 hours, she reports left sided abdominal pain associated with nausea and vomiting. She reports still having bowel movements, which reportedly has been both "hard" and "loose" at times. NG tube placed in the ED, however she is still very nauseous and wretching. She denies SBO related admissions in the past. Allergies/Medications Allergies: Coded Allergies: latex (RASH 05/01/16) prochlorperazine (From COMPAZINE) (ANAPHYLAXIS 05/01/16) Home Med list Albuterol Sulfate (Proair Hfa) 90 MCG HFA.AER.AD 1-2 PUF INH AD PRN RESPIRATORY (Reported) Alprazolam 0.5 MG TABLET 1 TAB PO TID ANXIETY (Reported) Atenolol 50 MG TABLET 1 TAB PO DAILY BP (Reported) Fluoxetine HCl 40 MG CAPSULE 1 TAB PO DAILY DEPRESSION (Reported) Fluticasone/Salmeterol (Advair 250-50 Diskus) (Unknown Strength) BLST.W.DEV ( Unknown Dose) INH BID RESPIRATORY (Reported) Gabapentin 600 MG TABLET 1 TAB PO TID NERVE PAIN (Reported) Levothyroxine Sodium (Synthroid) 25 MCG TABLET 1 TAB PO DAILY THYROID ( Reported) Mometasone Furoate (Nasonex) 50 MCG SPRAY.PUMP 1 SPRAY DAILY ALLERGIES ( Reported) Omeprazole 20 MG CAPSULE.DR 1 TAB PO DAILY GERD (Reported) Oxycodone HCl/Acetaminophen (Percocet 5-325 MG Tablet) 5 MG-325 MG TABLET 1 TAB PO Q3P PRN PAIN SCALE 4-6 (MODERATE) Oxycodone HCl/Acetaminophen (Percocet 5-325 MG Tablet) 5 MG-325 MG TABLET 1 TAB PO Q4P PRN PAIN Tizanidine HCl 4 MG CAPSULE 1 TAB PO NIGHTLY SPASM (Reported) TAKES 2-4 MG Past History Medical History Neurological: NONE EENT: NONE Cardiovascular: hypertension Respiratory: asthma Gastrointestinal: GERD Hepatic: NONE Musculoskeletal: disk herniation, fibromyalgia, fracture, osteoarthritis, SPINE FX Endocrine: hypothyroidim Cancer(s): NONE 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 ASSOCIATE/Reproductive: S/P ROCK History of MRSA: No History of VRE: No History of CDIFF: No Surgical History Pertinent Surgical History: spinal fusion, HYSTERECTOMY Past Family/Social History Family History Relations & Conditions if any MOTHER FH: multiple sclerosis Review of Systems Review of Systems: admits: abdominal pain, nausea/vomiting denies: f/c/s, dizziness, shortness of breath, chest pains Exam & Diagnostic Data Last 24 Hrs of Vital Signs/I&O Vital Signs Date Time Temp Pulse Resp B/P B/P Pulse O2 O2 Flow FiO2 Mean Ox Delivery Rate 08/09 0523 Room Air 08/08 2358 95.4 68 16 160/70 99 Room Air Intake & Output 08/09 0800 08/09 0000 08/08 1600 Intake Total 1000 Output Total Balance 1000 Intake, IV 1000 Patient 145 lb Weight Weight Estimated Measurement Method Physical Exam: General - alert & oriented x 3. uncomfortable. wretching with ng tube in place. Sking - warm, dry, and smooth Lungs - clear bilaterally. no w/r/r. Cardiac - s1s2. reg. Abdomen - soft. left upper quadrant tenderess mostly. not impressively distended. ng tube in place Extremities - warm bilaterally. no c/c/e. Neuro - no focal deficits. Last 24 Hrs of Labs/Andrey: Laboratory Tests 08/09/16 0140: D-Dimer 329 H 08/09/16 0014: Anion Gap 10, Estimated GFR > 60, BUN/Creatinine Ratio 30.0 H, Glucose 119 H, Calcium 9.5, Total Bilirubin 0.4, AST 28, ALT 31, Alkaline Phosphatase 52, Total Protein 7.0, Albumin 4.4, Globulin 2.6, Albumin/Globulin Ratio 1.7, Amylase 98, Lipase 191, CBC w Diff MAN DIFF ORDERED, RBC 4.51, MCV 86.5, MCH 29.2, RDW 14.4, MPV 8.3, Gran % 87.7 H, Lymphocytes % 8.6 L, Monocytes % 2.2, Eosinophils % 1.3, Basophils % 0.2, Absolute Granulocytes 11.1 H, Segmented Neutrophils 76 H , Absolute Lymphocytes 1.1 L, Lymphocytes 13 L, Monocytes 10 H, Absolute Monocytes 0.3, Eosinophils 1, Absolute Eosinophils 0.2, Absolute Basophils 0, Platelet Estimate ADEQUATE, Polychromasia 1+, PUBS MCHC 33.7, Serum Alcohol < 10.0, Urinalysis HEAVY H, Urine Color STRAW, Urine Clarity CLEAR, Urine pH 7.0, Ur Specific [place] 1.020, Urine Protein NEG, Urine Ketones NEG, Urine Nitrite NEG, Urine Bilirubin NEG, Urine Urobilinogen 0.2, Ur Leukocyte Esterase NEG, Ur Microscopic SEDIMENT EXAMINED, Urine RBC 1-3, Urine WBC 1-3 H, Ur Epithelial Cells FEW, Urine Mucus MOD H, Urine Hemoglobin TRACE-INTACT, Urine Glucose NEG, Urine Test NEGATIVE 08/09/16 0006: Serum Alcohol Cancelled 08/09/16 0001: Urine Opiates Screen < 100.00, Methadone Screen < 40, Barbiturate Screen < 60, Ur Phencyclidine Scrn < 6.00, Amphetamines Screen < 100, U Benzodiazepines Scrn < 85, Urine Cocaine Screen < 50, Urine Cannabis Screen > 80.00 H Diagnostic Data Other Results EXAMINATION: CT ABDOMEN AND PELVIS WITH CONTRAST CLINICAL INFORMATION: Left lower quadrant abdominal pain and vomiting. COMPARISON: No relevant prior imaging available. TECHNIQUE: Multidetector volumetric imaging was performed of the abdomen and pelvis before and after the IV administration of 95 mL of Optiray 320 intravenous contrast. Sagittal and coronal reformatted images were obtained on the technologist's workstation. DLP: 356 mGy-cm FINDINGS: LUNG BASES: Lung bases are clear. There is no pleural or pericardial effusion. LIVER, GALLBLADDER, AND BILIARY TREE: Liver attenuation is homogeneous with the exception of a small benign-appearing cyst within the left lobe of the liver. There is no worrisome hepatic parenchymal mass. The gallbladder is normal and there is no abnormal intrahepatic or extrahepatic biliary ductal dilatation. PANCREAS: Unremarkable. SPLEEN: Unremarkable. ADRENAL GLANDS: Unremarkable. KIDNEYS AND URETERS: There is a rounded nonspecific low-density lesion near the upper pole of left kidney. Kidneys are otherwise unremarkable. Specifically they demonstrate symmetric nephrographic enhancement. There is no hydroureteronephrosis. No worrisome mass or calcifications visualized along the expected course of the right or left ureter. BLADDER: Unremarkable. GASTROINTESTINAL TRACT: There is unusual small bowel anatomy. Specifically the ligament of Treitz does not have a normal position within the left upper quadrant. After the duodenum crosses the midline and then sweeps acutely to the right anterior to the superior mesenteric vein. The stomach and proximal small bowel are distended. There is fecal-like material within the small bowel. There is a point of transition to decompressed bowel within the pelvis for instance best illustrated on axial image 75 of 91 series 2. There is no evidence of a soft tissue mass in this location. It is likely related to the presence of fibrous adhesions. The colon is collapsed. ABDOMINAL WALL: There are chronic changes of a incision. Abdominal wall is otherwise intact. LYMPH NODES: There are no pathologically enlarged mesenteric or retroperitoneal lymph nodes. VASCULAR: The abdominal aorta is unremarkable. Inferior vena cava is normal. PELVIC VISCERA: The uterus is surgically absent. No worrisome adnexal mass. OSSEOUS STRUCTURES: There chronic changes of a spinal fusion with a hardware construct comprised of transpedicular screws that extend from L3 to S1 transfixed by vertical fusion rods. Otherwise there is no acute osseous finding. No worrisome lytic or blastic osseous lesions. IMPRESSION: The stomach and small bowel are distended. There is fecal-like material within the small bowel. A point of transition to decompressed bowel is visualized within the pelvis which raises the suspicion of obstruction or partial obstruction related to fibrous adhesions presumably related to prior surgery. The distal small bowel and colon are collapsed. Of note there is unusual small bowel anatomy. Specifically the ligament of Treitz does not have a normal position within the left upper quadrant. After the duodenum crosses the midline it then sweeps acutely to the right, anterior to the superior mesenteric vein. DICTATED BY: CORAZON LOZANO,STEVIE Potter DATE/TIME DICTATED:08/09/16335 ROOFING TECHNICIAN:BRAULIO DATE/TIME TRANSCRIBED:08/09/16335 Assessment/Plan Assessment/Plan: This 46 year old female with hx fibromyalgia, "GI issues", recent 20-30 lb involuntary weight loss over the last few months, hypertension, gerd, asthma, hypothyroidism, s/p ROCK 1 month ago, presents with likely sbo and apparently abnormal anatomy by CT scan involving ligament of treitz keep npo / ivf ng tube in place. she is still uncomfortable and wretching. check position by xray. protonix - gi ppx hep sc - dvt ppx home meds re-ordered pain control as needed serial exams and labs discussed above with As Ranked By This Provider Problem List: 1. Bowel obstruction MARYSOL GURROLA MD 08/09/16 1313: Exam & Diagnostic Data Last 24 Hrs of Vital Signs/I&O Vital Signs Date Time Temp Pulse Resp B/P B/P Pulse O2 O2 Flow FiO2 Mean Ox Delivery Rate 08/09 1050 62 150/90 08/09 0923 Room Air Room Air 08/09 0908 66 180/100 08/09 0755 62 18 176/100 94 Room Air 08/09 0713 98.1 68 22 190/104 100 Room Air 08/09 0542 96.7 66 18 152/80 100 Room Air 08/09 0523 Room Air 08/08 2358 95.4 68 16 160/70 99 Room Air Intake & Output 08/09 1600 08/09 0800 08/09 0000 Intake Total 1100 Output Total Balance 1100 Intake, IV 1100 Patient 138 lb 145 lb Weight Weight Reported by Patient Estimated Measurement Method Assessment/Plan As Ranked By This Provider Problem List: 1. Bowel obstruction Attending MD Review Statement Attending Statement Attending MD Statement: examined this patient, discuss w/resident/PA/FAMILY CONSUMER SCIENCE TEACHER, reviewed images Attending Assessment/Plan: 46yo woman with abdominal pain and vomiting 7 weeks post ROCK/BSO for pelvic pain. Clinical scenario and CT findings consistent with SBO, likely due to adhesive disease. She has retained bowel function and is improved with bowel rest. Therefore, surgical intervention unlikely. 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 No clinical or radiologic evidence for volvulus.
--- NOTE | 2016-08-09 05:33 | NUR ---
REPORT GIVEN TO AGATA KASPER
--- NOTE | 2016-08-09 05:39 | NUR ---
EKG IN PROGRESS BY ELVIA BASRUTO
--- NOTE | 2016-08-09 05:50 | NUR ---
PT MEDICATED WITH 200MG TIGAN PER EMAR
--- NOTE | 2016-08-09 06:30 | RADIOLOGY REPORT ---
EXAMINATION: XR PORTABLE CHEST CLINICAL INFORMATION: Nasogastric tube. Confirm position. COMPARISON: Chest radiograph 11/16/2014. TECHNIQUE: Portable AP view of the chest was obtained. FINDINGS: An enteric tube has been placed and its tip and sidehole are located within the stomach. Lungs are well-expanded. There is no focal consolidative disease, pleural effusion, or pneumothorax. The cardiac silhouette and upper mediastinal contours are unremarkable. No acute osseous finding. IMPRESSION: The enteric tube terminates within the stomach.
[2016-08-09 07:13] VITALS: BP 190/104
--- NOTE | 2016-08-09 07:30 | NUR ---
RECEIVED PT FROM ER @ 0615. A/O X3. ON RA. BP 190/104 P 68. SURGICAL PA UPDATED. ATENOLOL 50 MG ADMINISTERED. NG TUBE TO L NARE CONNECTED TO CONTINUOUS LOW WALL SUCTION. PT DENIES PAIN. C/O NAUSEA. PT GOT IM TIGAN JUST BEFORE COMING TO THE FLOOR. WILL MONITOR.
[2016-08-09 07:55] VITALS: BP 176/100
--- NOTE | 2016-08-09 08:16 | NUR ---
START OF SHIFT PT'S BLOOD PRESSURE 190/104. PT WAS GIVE PO ATENOLOL BY NIGHT NURSE. THIS RN RE CHECKED PTS BP AND WAS FOUND TO HAVE PRESSURE OF 176/100. NIGHT RN ASHLEY PAGED SURGICAL BARBARA RANDALL TO NOTIFY OF ELEVATED LEVEL. PA ORDERED IV HYDRALAZINE TO WHICH ASHLEY EXPLAINED COULD NOT BE GIVEN ON THE FLOOR WITHOUT PT BEING ON MONITOR. BARBARA RANDALL ASKED FOR POLICY. REFERRED TO CHARGE NURSE AND CONTRACT DRIVER PARAS. PARAS SPOKE TO SURGICAL PA ON THE PHONE AND ENDORSED THAT IV HYDRALIZINE COULD NOT BE GIVEN BY FLOOR NURSES. AWAITING FURTHER ORDERS AT THIS TIME. PT ASYMPTOMATIC. WILL CONTINUE TO MONITOR.
[2016-08-09 09:08] VITALS: BP 180/100
--- NOTE | 2016-08-09 09:21 | NUR ---
PT'S BP RECHECK SHOWED BP OF 180/100, CALLED SURGICAL PA PRAKASH HILL TO NOTIFY OF MAINTAINED HYPERTENSION. SAID SHE WILL BE UP TO ADMINISTER IV BP MEDS AND TO HAVE MONITOR READY FOR PATIENT. WILL MONITOR.
[2016-08-09 10:50] VITALS: BP 150/90
--- NOTE | 2016-08-09 10:52 | NUR ---
BP RECHECKED AGAIN- NOW 150/90. PT CALM, COMFORTABLE, AND RESTING AT THIS TIME. NOTIFIED BARBARA RANDALL. NOT GIVING IV LOPRESSOR. WILL CONTINUE TO MONITOR.
--- NOTE | 2016-08-09 11:16 | PN- General Surgery ---
See Addendum Subjective Subjective: Lethargic this morning. States she did not sleep at all and just wishes to sleep. Abdominal pain not present currently. NGT remains in place, to wall suction. No N/V. RN taking care of patient reports high blood pressure. Objective Vital Signs and I&Os Vital Signs Date Time Temp Pulse Resp B/P B/P Pulse O2 O2 Flow FiO2 Mean Ox Delivery Rate 08/09 1050 62 150/90 08/09 0923 Room Air Room Air 08/09 0908 66 180/100 08/09 0755 62 18 176/100 94 Room Air 08/09 0713 98.1 68 22 190/104 100 Room Air 08/09 0542 96.7 66 18 152/80 100 Room Air 08/09 0523 Room Air 08/08 2358 95.4 68 16 160/70 99 Room Air Intake & Output 08/09 1600 08/09 0800 08/09 0000 08/08 1600 08/08 0800 08/08 0000 Intake Total 1100 Output Total Balance 1100 Intake, IV 1100 Patient 138 lb 145 lb Weight Weight Reported by Patient Estimated Measurement Method Physical Exam: Gen: AAox3 in NAD Cor: S1+S2+ Lungs: CTA iona Abd: soft, slightly distended, tender to palpation diffusely, scant BS auscultated. Ext: no edema or calf tenderness to iona lower extremities. Current Medications: Current Medications Sig/Latonya Start time Last Medication Dose Route Stop Time Status Admin Albuterol Sulfate 2 PUF Q4-6 PRN PRN 08/09 0500 AC INH Alprazolam 0.5 MG TIDPRN PRN 08/09 0500 AC PO 08/16 0459 Atenolol 50 MG DAILY 08/09 1000 AC 08/09 PO 0709 Budesonide/ 2 PUF BID 08/09 1000 AC Formoterol Fumarate INH Dextrose/Sodium 1,000 ML Q8H 08/09 0445 AC 08/09 Chloride IV 0519 Fluoxetine HCl 40 MG DAILY 08/09 1000 AC PO Gabapentin 600 MG Q8 08/09 0600 AC PO Heparin Sodium 5,000 UNIT Q8 08/09 0600 AC 08/09 (Porcine) SC 0711 Hydralazine HCl 10 MG ONE TIME ONE 08/09 0815 CAN IV 08/09 0816 Levothyroxine Sodium 0.025 MG DAILY AC 08/09 0700 AC PO Metoprolol Tartrate 5 MG ONCE ONE 08/09 0930 DC IV 08/09 0931 Morphine Sulfate 2 MG Q4-6 PRN PRN 08/09 0500 AC IV Morphine Sulfate 4 MG Q4-6 PRN PRN 08/09 0500 AC IV Ondansetron HCl 4 MG Q6P PRN 08/09 0445 AC 08/09 IV 0753 Ondansetron HCl 0 .STK-MED ONE 08/09 0251 DC .ROUTE Ondansetron HCl 4 MG ONCE ONE 08/09 0215 DC 08/09 IV 08/09 0216 0252 Ondansetron HCl 4 MG ONCE ONE 08/09 0030 DC 08/09 IV 08/09 0031 0035 Ondansetron HCl 0 .STK-MED ONE 08/09 0023 DC .ROUTE Pantoprazole Sodium 40 MG DAILY 08/09 1000 AC 08/09 IV 0928 Promethazine HCl 12.5 MG ONCE ONE 08/09 0215 DC 08/09 IV 08/09 021 0200 Promethazine HCl 0 .STK-MED ONE 08/09 0044 DC .ROUTE Sodium Chloride 2 SPRAY Q4-6 PRN PRN 08/09 0500 AC JAIRO Sodium Chloride 1,000 ML BOLUS ONE 08/09 0015 DC 08/09 IV 08/09 0114 0035 Tizanidine HCl 2 MG AT BEDTIME NEED.. 08/09 0500 AC PO Trimethobenzamide HCl 0 .STK-MED ONE 08/09 0540 DC IM Trimethobenzamide HCl 200 MG STAT STA 08/09 0528 DC 08/09 IM 08/09 0529 0550 Results Last 48 Hours of Labs: Laboratory Tests 08/09 08/09 08/09 0140 0014 0006 Chemistry Sodium (137 - 145 mmol/L) 139 Potassium (3.5 - 5.1 mmol/L) 4.8 Chloride (98 - 107 mmol/L) 106 Carbon Dioxide (22 - 30 mmol/L) 24 Anion Gap (5 - 16) 10 BUN (7 - 17 mg/dL) 15 Creatinine (0.5 - 1.0 mg/dL) 0.5 Estimated GFR (>60 ml/min) > 60 BUN/Creatinine Ratio (7 - 25 %) 30.0 H Glucose (65 - 99 mg/dL) 119 H Calcium (8.4 - 10.2 mg/dL) 9.5 Total Bilirubin (0.2 - 1.3 mg/dL) 0.4 AST (14 - 36 U/L) 28 ALT (9 - 52 U/L) 31 Alkaline Phosphatase (<127 U/L) 52 Total Protein (6.3 - 8.2 g/dL) 7.0 Albumin (3.5 - 5.0 g/dL) 4.4 Globulin (1.9 - 4.2 gm/dL) 2.6 Albumin/Globulin Ratio (1.1 - 2.2 %) 1.7 Amylase (30 - 110 U/L) 98 Lipase (23 - 300 U/L) 191 Coagulation D-Dimer (70 - 232 ng/ml) 329 H Hematology CBC w Diff MAN DIFF ORDERED WBC (4.8 - 10.8 /CUMM) 12.6 H RBC (4.20 - 5.40 /CUMM) 4.51 Hgb (12.0 - 16.0 G/DL) 13.2 Hct (37 - 47 %) 39.1 MCV (81.0 - 99.0 FL) 86.5 MCH (27.0 - 31.0 PG) 29.2 RDW (11.5 - 14.5 %) 14.4 Plt Count (130 - 400 /CUMM) 282 MPV (7.4 - 10.4 FL) 8.3 Gran % (42.2 - 75.2 %) 87.7 H Lymphocytes % (20.5 - 51.1 %) 8.6 L Monocytes % (1.7 - 9.3 %) 2.2 Eosinophils % (0 - 5 %) 1.3 Basophils % (0.0 - 2.0 %) 0.2 Absolute Granulocytes (1.4 - 6.5 /CUMM) 11.1 H Segmented Neutrophils (42.2 - 75.2 %) 76 H Absolute Lymphocytes (1.2 - 3.4 /CUMM) 1.1 L Lymphocytes (20.5 - 51.1 %) 13 L Monocytes (1.7 - 9.3 %) 10 H Absolute Monocytes (0.10 - 0.60 /CUMM) 0.3 Eosinophils (0 - 5.0 %) 1 Absolute Eosinophils (0.0 - 0.7 /CUMM) 0.2 Absolute Basophils (0.0 - 0.2 /CUMM) 0 Platelet Estimate (ADEQUATE) ADEQUATE Polychromasia 1+ PUBS MCHC (33.0 - 37.0 G/DL) 33.7 Toxicology Serum Alcohol (<10 MG/DL) < 10.0 Cancelled Urines Urinalysis HEAVY H Urine Color (YEL,AMB,STR) STRAW Urine Clarity (CLEAR) CLEAR Urine pH (5.0 - 8.0) 7.0 Ur Specific [place] (1.001 - 1.035) 1.020 Urine Protein (NEG,<30 MG/DL) NEG Urine Ketones (NEG) NEG Urine Nitrite (NEG) NEG Urine Bilirubin (NEG) NEG Urine Urobilinogen (0.1 - 1.0 EU/dl) 0.2 Ur Leukocyte Esterase (NEG) NEG Ur Microscopic SEDIMENT EXAMINED Urine RBC (0 - 5 /HPF) 1-3 Urine WBC (0 - 2 /HPF) 1-3 H Ur Epithelial Cells (NONE,FEW) FEW Urine Mucus (FEW,NONE) MOD H Urine Hemoglobin (NEG) TRACE-INTACT Urine Glucose (N MG/DL) NEG Urine Test NEGATIVE 08/09 0001 Toxicology Urine Opiates Screen (>2000 NG/ML) < 100.00 Methadone Screen (>300 NG/ML) < 40 Barbiturate Screen (>200 NG/ML) < 60 Ur Phencyclidine Scrn (>25 NG/ML) < 6.00 Amphetamines Screen (>1000 NG/ML) < 100 U Benzodiazepines Scrn (>200 NG/ML) < 85 Urine Cocaine Screen (>300 NG/ML) < 50 Urine Cannabis Screen (>50 NG/ML) > 80.00 H Assessment/Plan Assessment/Plan A: HD #1 with pmh significant for ROCK approxmiately 1 month prior to admission now admitted with SBO; AVSS. NGT in place with minimal output. Plan: Continue NGT to CLWS. NPO/IVF. Minimize narcotic administration. Atenolol 50 mg daily (crush through NGT) and clamp NGT x 1 hour during administration. OOB and ambulate as tolerated. ?MV in am. Core Measures/Miscellaneous Venous Thromboembolism VTE Risk Factors: Age > 40, Surgery VTE Contraindications: No Contraindications VTE Diagnosis: No VTE Type: NONE VTE Confirmed by (Test): NONE Beta Casi Is Beta Casi a Home Med? Yes Antibiotics Is Patient on Antibiotics? No
[2016-08-09 15:56] VITALS: BP 140/88
[2016-08-09 22:21] VITALS: BP 150/80
[2016-08-10 06:29] VITALS: BP 144/80
[2016-08-10 09:06] LABS: ABSOLUTE BASOPHIL COUNT 0 /CUMM (0.0-0.2); ABSOLUTE EOSINOPHIL COUNT 0.1 /CUMM (0.0-0.7); ABSOLUTE LYMPH COUNT 1.7 /CUMM (1.2-3.4); ABSOLUTE MONOCYTE COUNT 0.4 /CUMM (0.10-0.60); MEAN CORPUSCULAR HGB 28.7 PG (27.0-31.0)
--- NOTE | 2016-08-10 09:12 | RADIOLOGY REPORT ---
EXAMINATION: ABDOMEN 2 VIEWS CLINICAL INFORMATION: Concern for small bowel obstruction. Follow-up abnormal exam. COMPARISON: Abdominal and pelvic CT from 08/09/2016. TECHNIQUE: Supine and upright views of the abdomen are provided. FINDINGS: An enteric tube is in place. The tip overlies left upper quadrant, likely within the stomach. There are a few mildly prominent loops of bowel within the right midabdomen. There are no air-fluid levels. There is no appendicolith. The visualized lung bases are clear. Posterior spinal fusion hardware is intact. IMPRESSION: Enteric tube in place. Nonspecific bowel gas pattern with a few mildly prominent loops of bowel within the right midabdomen.
[2016-08-10 09:59] LABS: ABSOLUTE GRANULOCYTE CT 2.9 /CUMM (1.4-6.5); BASOPHIL % 0.4 % (0.0-2.0); EOSINOPHIL % 1.7 % (0-5); GRANULOCYTE % 56.8 % (42.2-75.2); HEMATOCRIT 36.3 % (37-47); MEAN CORPUSCULAR HGB CONC 33.1 G/DL (33.0-37.0); MEAN CORPUSCULAR VOLUME 86.8 FL (81.0-99.0); PLATELET COUNT 249 /CUMM (130-400); RBC DISTRIBUTION WIDTH 14.8 % (11.5-14.5); RED BLOOD CELL CT 4.19 /CUMM (4.20-5.40)
[2016-08-10 10:03] LABS: WHITE BLOOD CELL COUNT 5.1 /CUMM (4.8-10.8)
--- NOTE | 2016-08-10 10:36 | PN- General Surgery ---
See Addendum Subjective Subjective: Major complaints this morning. She denies nausea. Also denies pain. Overall she is feeling much better. She is passing flatus and had a small, firm bowel movement. She admits to minor headache, but is refusing pain medication at this point. Otherwise denies dizziness, chest pain, shortness of breath. Objective Vital Signs and I&Os Vital Signs Date Time Temp Pulse Resp B/P B/P Pulse O2 O2 Flow FiO2 Mean Ox Delivery Rate 08/10 0629 98.6 71 18 144/80 96 Room Air 08/09 2221 98.4 65 20 150/80 96 Room Air 08/09 1556 98.0 63 18 140/88 100 08/09 1050 62 150/90 Intake & Output 08/10 1600 08/10 0800 08/10 0000 08/09 1600 08/09 0800 08/09 0000 Intake Total 9342 675 7650 Output Total 1175 51 650 Balance -175 49 -650 1100 Intake, IV 1000 1100 Intake, Oral 100 Number 0 Bowel Movements Output, 75 50 300 Gastric Drainage Output, Stool 1 Output, Urine 1100 350 Patient 138 lb 145 lb Weight Weight Reported by Patient Estimated Measurement Method Physical Exam: Enrile: Patient is awake and alert. No acute distress. Cardiac: Regular Pulmonary: Lungs are clear bilaterally. Abdomen: The nasogastric tube remains in place. Abdomen is soft and nondistended. Nontender. No guarding or rigidity noted. Normoactive bowel sounds are heard. Janna 80s: No significant edema or calf tenderness are appreciated. Assessment/Plan Assessment/Plan Patient is a 46-year-old female who is now hospital day #2 admitted with a small bowel obstruction. She has a history of a hysterectomy. Nasogastric tube remains in place, but she is now having bowel function. Plan: -We will most likely remove NG tube today, but clamped for now until seen by attending. -Continue IV fluids until diet advancement. -Subcutaneous heparin and Alps for DVT prophylaxis. -Pain control can be used if needed, although it has been required. -Continue home meds, including beta rahul. -Will discuss with attending. Core Measures/Miscellaneous Venous Thromboembolism VTE Risk Factors: Age > 40, Surgery VTE Contraindications: No Contraindications VTE Diagnosis: No VTE Type: NONE VTE Confirmed by (Test): NONE Beta Rahul Is Beta Rahul a Home Med? Yes Antibiotics Is Patient on Antibiotics? No
--- NOTE | 2016-08-10 11:11 | NUR ---
PATIENT NASOGASTRIC TUBE CLAMPED AT THIS TIME PER SURGICAL BARBARA MCCULLOUGH.
[2016-08-10 14:23] VITALS: BP 156/98
[2016-08-10 22:57] VITALS: BP 146/80
[2016-08-11 06:54] VITALS: BP 132/80
--- NOTE | 2016-08-11 07:32 | PN- General Surgery ---
See Addendum Subjective Subjective: The patient was seen this morning. She reports that she is tolerating a clear liquid diet without nausea. She continues to pass flatus but has yet to have a significant bowel movement since yesterday. She has no complaints the current time aside from some mild abdominal cramping. Objective Vital Signs and I&Os Vital Signs Date Time Temp Pulse Resp B/P B/P Pulse O2 O2 Flow FiO2 Mean Ox Delivery Rate 08/11 0654 97.6 56 16 132/80 97 Room Air 08/10 2257 98.3 60 20 146/80 96 Room Air 08/10 1423 98.1 68 20 156/98 95 Intake & Output 08/11 0800 08/11 0000 08/10 1600 08/10 0800 08/10 0000 08/09 1600 Intake Total 246 974 8622 100 Output Total 150 1175 51 650 Balance 100 450 -150 -175 49 -650 Intake, IV 1000 Intake, Oral 100 450 100 Number 0 1 0 Bowel Movements Output, 150 75 50 300 Gastric Drainage Output, Stool 1 Output, Urine 1100 350 Physical Exam: Gen.: Alert and in no obvious distress Skin: Warm and dry Abdomen: Soft, nondistended, mild generalized tenderness without rebound or guarding, bowel sounds positive. Extremities: Bilateral lower extremities are warm without calf tenderness or significant edema. Assessment/Plan Assessment/Plan Assessment: 46-year-old female with a resolving small bowel obstruction. The patient is tolerating a clear liquid diet with signs of improved bowel function and no nausea. Plan: Advanced to full liquid diet with toast if patient tolerates this we'll advance to a regular diet possible discharge later today. Out of bed ambulate GI and DVT prophylaxis Discontinue pain medication Core Measures/Miscellaneous Venous Thromboembolism VTE Risk Factors: Age > 40, Surgery VTE Contraindications: No Contraindications VTE Diagnosis: No VTE Type: NONE VTE Confirmed by (Test): NONE Beta Casi Is Beta Casi a Home Med? Yes Antibiotics Is Patient on Antibiotics? No
--- NOTE | 2016-08-11 07:34 | Patient Discharge Instructions ---
Discharge Instructions General Discharge Information You were seen/treated for: Small bowel obstruction You had these procedures: Conservative management Watch for these problems: Significantly increased pain, vomiting, or abdominal distention. Diet Recommended Diet: Regular no added salt Activity Activity Self Limited: Yes Acute Coronary Syndrome Inclusion Criteria At DC or during hospital stay patient has or had the following: ACS DIAGNOSIS No Discharge Core Measures Meds if any: Prescribed or Continued at Discharge Meds if any: NOT Prescribed or Continued at Discharge Congestive Heart Failure Inclusion Criteria At DC or during hospital stay patient has or had the following: CHF DIAGNOSIS No Discharge Core Measures Meds if any: Prescribed or Continued at Discharge Meds if any: NOT Prescribed or Continued at Discharge Cerebrovascular accident Inclusion Criteria At DC or during hospital stay patient has or had the following: CVA/TIA Diagnosis No Discharge Core Measures Meds if any: Prescribed or Continued at Discharge Meds if any: NOT Prescribed or Continued at Discharge Venous thromboembolism Inclusion Criteria VTE Diagnosis No VTE Type NONE VTE Confirmed by (Test) NONE Discharge Core Measures - Per Current guidelines, there needs to be overlap - treatment for the first 5 days of Warfarin therapy. - If discharged on Warfarin prior to 5 days of - overlap therapy, the patient will need to be - assessed for post discharge needs including - *Post discharge parental anticoagulation - *Warfarin and/or parental anticoagulation education - *Follow up date to check INR post discharge At least 5 days overlap therapy as Inpatient No Meds if any: Prescribed or Continued at Discharge Note: Overlap Therapy is Warfarin and Anticoagulant Meds if any: NOT Prescribed or Continued at Discharge
--- NOTE | 2016-08-11 11:52 | RADIOLOGY REPORT ---
EXAMINATION: XR ABDOMEN MULTIPLE VIEWS CLINICAL INDICATION: Small bowel obstruction. Recurrent pain after direct. COMPARISON: 08/10/2016 TECHNIQUE: AP upright and supine views of the abdomen FINDINGS: Again seen is a dilated air-filled loop of small bowel in the central abdomen, more pronounced as compared to prior. Borderline dilated segments of small bowel from the right midabdomen. Colon is nondistended. Gastric decompression tube is been removed. No intraperitoneal free air. Lung bases are clear. No pathologic calcification identified. Fusion hardware is present in the lower lumbar spine. IMPRESSION: Increased small bowel dilatation in the central abdomen as compared to prior following gastric decompression tube removal, consistent with persistent small bowel obstruction.
[2016-08-11 14:17] VITALS: BP 140/94
--- NOTE | 2016-08-11 20:21 | NUR ---
1800- PT COMPLAINING OF INCREASED ABDOMINAL DISCOMFORT, BLOATING AND PAIN. SURG BARBARA MARION NOTIFIED. PT ADVISED TO DECREASE PO INTAKE OF CLEAR LIQUID DIET. IVF TO BE ORDERED. CONTINUE TO MONITOR.
[2016-08-11 22:46] VITALS: BP 128/80
[2016-08-12 06:58] VITALS: BP 120/68
--- NOTE | 2016-08-12 07:07 | PN- General Surgery ---
See Addendum Subjective Subjective: Patient had worsening pain after advancing diet yesterday. She had a better night last night but still complained of mid abdominal pain and also in the left side. Abdominal X-ray yesterday afternoon shows mildly worsening SBO when compared to previous abdominal x-ray. Patient had a "normal " bowel movement this morning at around 7 AM. Symptoms have somewhat relieved since then. She denies any nausea or vomiting. She feels her distention is less. Objective Vital Signs and I&Os Vital Signs Date Time Temp Pulse Resp B/P B/P Pulse O2 O2 Flow FiO2 Mean Ox Delivery Rate 08/12 0658 97.7 54 16 120/68 96 Room Air 08/11 2246 98.4 76 18 128/80 98 08/11 1417 97.0 58 18 140/94 97 Room Air Intake & Output 08/12 0800 08/12 0000 08/11 1600 08/11 0800 08/11 0000 08/10 1600 Intake Total 30 600 100 450 Output Total 550 150 Balance 30 50 100 450 -150 Intake, Oral 30 600 100 450 Number 1 0 1 Bowel Movements Output, 150 Gastric Drainage Output, Urine 550 Physical Exam: Well-developed well-nourished no apparent distress. HEENT: Atraumatic, extraocular motion intact Neck: Supple, no lymphadenopathy Respiratory: No respiratory distress Abdomen: Hypoactive bowel sounds. Mild tenderness diffusely to the right side of the abdomen, Moderate tenderness left side of the mid abdominal region. mild distention Extremities: No edema, no calf pain Neuro: Alert and oriented x3 Psych: Mood affect normal, normal memory normal judgment. Skin: Warm and dry, no rash on exposed skin Assessment/Plan Assessment/Plan Assessment: 46-year-old female with a small bowel obstruction. X-ray mildly worse as of yesterday after NG tube removed and she did not tolerate her diet advancement. Resume clear diet today and advance slowly as tolerated Out of bed ambulate GI and DVT prophylaxis Core Measures/Miscellaneous Venous Thromboembolism VTE Risk Factors: Age > 40, Surgery VTE Contraindications: No Contraindications VTE Diagnosis: No VTE Type: NONE VTE Confirmed by (Test): NONE Beta Casi Is Beta Casi a Home Med? Yes Antibiotics Is Patient on Antibiotics? No
[2016-08-12 09:50] VITALS: BP 128/82
[2016-08-12 15:18] VITALS: BP 132/86
[2016-08-12 22:49] VITALS: BP 120/75
[2016-08-13 06:41] VITALS: BP 150/92
--- NOTE | 2016-08-13 07:25 | PN- General Surgery ---
See Addendum Subjective Subjective: Did well overnight. Admits to less pain and bloating. Denies any N or V. Tolerating clears and toast last night. Had a small BM this AM and passing flatus. Voiding spontaneously. Desires to be d/c'd today. Objective Vital Signs and I&Os Vital Signs Date Time Temp Pulse Resp B/P B/P Pulse O2 O2 Flow FiO2 Mean Ox Delivery Rate 08/13 0743 70 152/92 08/13 0641 97.3 60 16 150/92 97 Room Air 08/12 2249 98.5 65 18 120/75 96 Room Air 08/12 1518 98.1 61 20 132/86 97 08/12 0950 65 128/82 Intake & Output 08/13 0800 08/13 0000 08/12 1600 08/12 0800 08/12 0000 08/11 1600 Intake Total 240 700 30 600 Output Total 600 550 Balance 240 100 30 50 Intake, IV 100 Intake, Oral 240 600 30 600 Number 1 1 Bowel Movements Output, Urine 600 550 Patient 138 lb Weight AVSS Physical Exam: Gen: NAD, laying in bed CV: RRR Pulm: CTAB Abd: Soft, mild diffuse pain throughout, normoactive BS Ext: No calf pain b/l. Assessment/Plan Assessment/Plan 46-year-old female with a resolving SBO and chronic IBS - stable and tolerating clears with toast. Plan: - Advanced diet to LRD - Continue ambulating - Continue with current meds - GI and DVT prophylaxis - Likely d/c home today once able to tolaerate diet. - Plan discussed with Dr. Rojas Core Measures/Miscellaneous Venous Thromboembolism VTE Risk Factors: Age > 40, Surgery VTE Contraindications: No Contraindications VTE Diagnosis: No VTE Type: NONE VTE Confirmed by (Test): NONE Beta Casi Is Beta Casi a Home Med? Yes Antibiotics Is Patient on Antibiotics? No
[2016-08-13 07:43] VITALS: BP 152/92
--- NOTE | 2016-08-13 11:51 | Surgical Discharge Summary ---
Visit Information Visit Dates Admission Date: 08/09/16 Discharge Date: 08/13/16 History of Present Illness Chief Complaint: abdominal pain Medical History Blood Transfusion Hx: No Neurological: NONE EENT: NONE Cardiovascular: hypertension Respiratory: asthma Gastrointestinal: GERD Hepatic: NONE Renal: NONE Musculoskeletal: disk herniation, fibromyalgia, fracture, osteoarthritis, SPINE FX Psychiatric: anxiety Endocrine: hypothyroidim Blood Disorders: anemia Cancer(s): NONE RADIO MACHINIST/Reproductive: S/P ROCK History of MRSA: No History of VRE: No History of CDIFF: No Isolation History: Standard Influenza Vaccine: 04/20/06 Surgical History Pertinent Surgical History: spinal fusion, HYSTERECTOMY Family History Relations & Conditions If Any: MOTHER FH: multiple sclerosis Psychosocial History Where Do You Live? Home Who Do You Live With? Brother Services at Home: None What is Your Primary Language? Eritrean Review of Systems: not assessed at d/c Hospital Course Course Attending Physician: MARYSOL GURROLA MD Primary Care Physician: ASHOK LOZANO,ABIOLA Gregory Hospital Course: admitted to surgery for partial intestinal obstruction presumed to be due to adhesions from her recent hysterectomy. Nasogastric decompression was performed and her abdominal pain resolved within the first 24 hours. She had return of bowel function. A diet was started and slowly advanced over the course of 3 days. She complained of crampy abdominal pain that was attributed to return of bowel function. Serial Jim x-ray showed progression of gas throughout her colon. At time of discharge she was tolerating a regular diet. Allergies: Coded Allergies: latex (RASH 05/01/16) prochlorperazine (From COMPAZINE) (ANAPHYLAXIS 05/01/16) Disposition Summary Disposition Principal Diagnosis: Small bowel obstruction Additional Diagnosis: None Discharge Disposition: home or self care Discharge Instructions General Discharge Information Code Status: Full Code Patient's Diet: Regular low residual Patient's Activity: Ad heber. Follow-Up Instructions/Appts: Primary care physician as previously arranged Medications at Discharge Discharge Medications: Continue taking these medications: Levothyroxine Sodium (Synthroid) 25 MCG TABLET 1 Tablet ORAL DAILY Comments: Last Taken: 08/12/16 Time: 2100 Atenolol (Atenolol) 50 MG TABLET 1 Tablet ORAL DAILY Comments: Last Taken: 08/13/16 Time: 0800 Gabapentin (Gabapentin) 600 MG TABLET 1 Tablet ORAL THREE TIMES DAILY Comments: Last Taken: 08/13/16 Time: 0600 Fluticasone/Salmeterol (Advair 250-50 Diskus) (Unknown Strength) BLST.W.DEV Unknown Dose Inhale through mouth TWICE DAILY Comments: Last Taken:NOT GIVEN IN HOSPITAL Time: Albuterol Sulfate (Proair Hfa) 90 MCG HFA.AER.AD 1-2 Puff Inhale through mouth As Directed as needed for RESPIRATORY Comments: Last Taken:NOT GIVEN IN HOSPITAL Time: Fluoxetine HCl (Fluoxetine HCl) 40 MG CAPSULE 1 Tablet ORAL DAILY Comments: Last Taken: 08/13/16 Time: 1000 Omeprazole (Omeprazole) 20 MG CAPSULE.DR 1 Tablet ORAL DAILY Comments: Last Taken:NOT GIVEN IN HOSPITAL Time: Tizanidine HCl (Tizanidine HCl) 4 MG CAPSULE 1 Tablet ORAL NIGHTLY Instructions: TAKES 2-4 MG Comments: Last Taken:NOT GIVEN IN HOSPITAL Time: Alprazolam (Alprazolam) 0.5 MG TABLET 1 Tablet ORAL THREE TIMES DAILY Comments: Last Taken: 08/11/16 Time: 2100 Mometasone Furoate (Nasonex) 50 MCG SPRAY.PUMP 1 [place] DAILY Comments: Last Taken:NOT GIVEN IN HOSPITAL Time: Oxycodone HCl/Acetaminophen (Percocet 5-325 MG Tablet) 5 MG-325 MG TABLET 1 Tablet ORAL EVERY 4 HOURS NEEDED as needed for PAIN Qty = 30 Oxycodone HCl/Acetaminophen (Percocet 5-325 MG Tablet) 5 MG-325 MG TABLET 1 Tablet ORAL EVERY 3 HOURS NEEDED as needed for PAIN SCALE 4-6 (MODERATE ) Qty = 30 Comments: NOT TAKEN IN HOSPITAL Copies To: ASHOK LOZANO,ABIOLA Gregory
== END 2016-08-13 14:30 | DRG 390 ==
LOC: ERH 23:39 → ERHI 08-09 04:34 → 2NA 08-09 04:34 → ENRESERV 08-09 05:13 → 2NA 08-09 06:27 → ENPENDDIS 08-13 10:36 → 2NA 08-13 14:30
PROVIDERS: Emergency Medicine; Physician Assistant; ADMIT Surgery
DX: K56.5 Intestinal adhesions [bands] with obstruction (postinfection) (principal); I10 Essential (primary) hypertension; K58.9 Irritable bowel syndrome, unspecified; J45.909 Unspecified asthma, uncomplicated; K21.9 Gastro-esophageal reflux disease without esophagitis; M79.7 Fibromyalgia; M47.9 Spondylosis, unspecified; E03.9 Hypothyroidism, unspecified
CPT/HCPCS: 2NASP; 36415; 74020; 74177; 80307; 81001; 81025; 82436; 93005; 93010; 96374; 99291; G0480; J1644; J2405; J2550; J3250; J3490; J7042